=== PATIENT | female | born 1995 | race American Indian/Alaskan Native ===

== ENCOUNTER 2020-05-04 18:43 | Emergency (ER) | payer SELFPAY ==
[2020-05-04] MEDS ORDERED: charcoal activated SOLUTION 25 GM/120 ML PO ONE (18:55)
[2020-05-04 19:37] LABS: Hematocrit 33.5 % (30.3-42.9); Hemoglobin 10.7 gm/dl (10.1-14.3); Mean Corpuscular HGB Conc 32 % (30-34); Mean Corpuscular Volume 81 fl (79-97); Platelet Count 330 K/mm3 (140-440); Red Blood Count 4.13 M/mm3 (3.65-5.03)
[2020-05-04 20:08] LABS: Alanine Aminotransferase 18 units/L (7-56); Albumin 3.7 g/dL (3.9-5); BUN/Creatinine Ratio 13; Blood Urea Nitrogen 8 mg/dL (7-17); Calcium 9.2 mg/dL (8.4-10.2); Hemolysis Index 45
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
[2020-05-04] MEDS ORDERED: CHARCOAL/SORBITOL SOLUTION 25 GM/120 ML ONE (21:11)
[2020-05-04] MEDS ORDERED: SODIUM CHLORIDE 0.9% 1000 ML 1,000 ML IV ONE (21:34)
[2020-05-04] MEDS ORDERED: ONDANSETRON 4 MG/2 ML INJ IV ONE (21:35)
[2020-05-04 23:09] LABS: Bacteria,Urine 4+ /HPF (Negative); Bilirubin,Urine NEG (Negative); Blood,Urine NEG (Negative); Color,Urine Yellow (Yellow); Hyaline Casts,Urine 1 /LPF; Mucus,Urine FEW /HPF; Protein,Urine <15 mg/dL mg/dL (Negative); Urobilinogen,Urine < 2.0 mg/dL (<2.0)
[2020-05-04 23:10] LABS: Amphetamine Screen,Urine PRESUMPTIVE POSITIVE; Benzodiazepines Screen,Urine PRESUMPTIVE NEGATIVE; Cannabinoid Screen,Urine PRESUMPTIVE POSITIVE; Cocaine Screen,Urine PRESUMPTIVE NEGATIVE; Methadone Screen,Urine PRESUMPTIVE NEGATIVE; Opiate Screen,Urine PRESUMPTIVE NEGATIVE
[2020-05-04] MEDS ORDERED: POTASSIUM CHLORIDE ER 20 MEQ TAB PO ONE (23:26)
[2020-05-04] MEDS: NITROFURANTOIN MONOHYD/M-CRYST 100 MG CAP PO SCH (23:38)
[2020-05-05] MEDS: NITROFURANTOIN MONOHYD/M-CRYST 100 MG CAP PO SCH ×2 (10:33→22:32)
[2020-05-06] MEDS ORDERED: LIDOCAINE-MPF (1%) 10 MG/1 ML VIAL 5 ML INFILTRATI ONE (06:09)
--- NOTE | 2020-05-06 06:12 | Emergency Department Report ---
Blank Doc - Documentation Documentation: Receiving psychiatric facility requested the patient receive treatment for UTI prior to transfer. Her urine results are actually quite equivocal and there is no urine culture. She is given 1 g Rocephin IM. This should complete her treatment. She no longer needs to continue her Macrobid. Patient remains medically clear for psychiatric admission.
[2020-05-06 08:57] VITALS: BP 117/72
[2020-05-06] MEDS: NITROFURANTOIN MONOHYD/M-CRYST 100 MG CAP PO SCH (10:00)
== END 2020-05-06 12:45 | disposition admitted as inpatient to this hospital (09) ==
LOC: ED 18:43
DX: T43.621A Poisoning by amphetamines, accidental (unintentional), initial encounter (principal); F32.9 Major depressive disorder, single episode, unspecified; Z98.890 Other specified postprocedural states; Z98.51 Tubal ligation status; X83.8XXA Intentional self-harm by other specified means, initial encounter; Y93.89 Activity, other specified; Y92.89 Other specified places as the place of occurrence of the external cause; Y99.8 Other external cause status
CPT/HCPCS: 36415; 80053; 80307; 81001; 84132; 84702; 85027; 87086; 93005; 96361; 96372; 96374; 99285; J0696; J2405; J7030; 80320; G0480